=== PATIENT | female | born 1975 | race Caucasian/White ===

== ENCOUNTER 2016-10-12 10:06 | Outpatient (CLI) | payer MEDICAID | END 2016-10-12 10:07 | disposition home or self-care (01) ==

== ENCOUNTER 2016-10-14 09:21 | Day surgery (SDC) | payer MEDICAID ==
[2016-10-14] MEDS ORDERED: ceFAZolin 2 GM/50 ML 50 ML IV ONE (09:31)
[2016-10-14] MEDS ORDERED: LACTATED RINGERS 1,000 ML IV ONE ×3 (09:53→14:20)
[2016-10-14] MEDS ORDERED: LIDOCAINE-MPF 2% 5 ML VIAL IM ONE (10:49)
[2016-10-14] MEDS ORDERED: ROCURONIUM 50 MG/5 ML VIAL IVP ONE (10:49)
[2016-10-14] MEDS ORDERED: SUCCINYLCHOLINE 200 MG/10 ML VIAL IVP ONE (10:49)
[2016-10-14] MEDS ORDERED: HYDROmorphone 1 MG/ML SYRINGE IVP ONE (10:49)
[2016-10-14] MEDS ORDERED: ESMOLOL 100 MG/10 ML VIAL IVP ONE (10:49)
[2016-10-14] MEDS ORDERED: PROPOFOL 200 MG/20 ML VIAL IVP ONE (10:49)
[2016-10-14] MEDS ORDERED: ONDANSETRON 4 MG/2 ML VIAL IVP ONE (10:49)
[2016-10-14] MEDS ORDERED: MIDAZOLAM 2 MG/2 ML VIAL IVP ONE (10:49)
[2016-10-14] MEDS ORDERED: KETOROLAC 30 MG/ML VIAL IVP ONE (10:49)
[2016-10-14] MEDS ORDERED: PHENYLEPHRINE 50 MG/5 ML VIAL IV ONE (10:49)
[2016-10-14] MEDS ORDERED: DEXAMETHASONE 4 MG/ML VIAL IVP ONE (10:49)
[2016-10-14] MEDS ORDERED: LIDOCAINE 1%-EPI 1:100000 30 ML MDV SUBQ ONE (11:03)
[2016-10-14] MEDS ORDERED: BUPIVACAINE 0.25%-EPI 1:200000 PF 30 ML VIAL SUBQ ONE (11:31)
[2016-10-14] MEDS ORDERED: oxyCOD/ACETAMIN 5 MG/325 MG TABLET PO ONE (14:50)
== END 2016-10-14 09:22 | disposition home or self-care (01) ==
PROC: 0UB74ZZ Excision of Bilateral Fallopian Tubes, Percutaneous Endoscopic Approach (ICD-10-PCS; principal; 2016-10-14 11:00)
DX: Z30.2 Encounter for sterilization (principal)
CPT/HCPCS: 58661; 81025; A9270; J0690; J1170; J7120

== ENCOUNTER 2016-10-21 08:00 | Outpatient (CLI) | payer MEDICAID | END 2016-10-21 23:59 | disposition home or self-care (01) | DX: K92.1 Melena (principal) ==

== ENCOUNTER 2017-02-09 09:33 | Outpatient (CLI) | payer OTHER ==
--- NOTE | 2017-02-09 14:24 | DEXA Report ---
DEXA SCAN: 02/09/2017 CLINICAL INDICATION: Postmenopausal. TECHNIQUE: Dual energy x-ray absorptiometry (DXA) was performed on a [employer] system. Regions measured are the AP spine, femoral neck, and, if needed, forearm. COMPARISON: None. In accordance with the International Society for Clinical Densitometry (ISCD) guidelines, data from previous exams may be reanalyzed using current recommendations and techniques. This is done to allow a more accurate basis for comparison with the current study. FINDINGS: The data for the lumbar spine is as follows: REGION BMD (g/cm/cm) T-SCORE Z-SCORE L1 0.914 -1.8 -1.1 L2 1.021 -1.5 -0.8 L3 1.062 -1.2 -0.5 L4 1.014 -1.5 -0.9 TOTAL 1.008 -1.4 -0.8 NOTE: All evaluable vertebrae are used for classification. The data for the hip is as follows: REGION BMD (g/cm/cm) T-SCORE Z-SCORE Neck 0.822 -1.6 -0.6 TOTAL 0.762 -1.9 -1.2 NOTE: The femoral neck or total proximal femur, whichever is lowest, is used for classification. * Denotes significant change at the 95% confidence level. Denotes dissimilar scan types or analysis methods. IMPRESSION: THE WHO CLASSIFICATION BASED ON THE INTERNATIONAL REFERENCE STANDARD IS OSTEOPENIA. THE FRACTURE RISK IS INCREASED. RECOMMENDATION: Patients with diagnosis of osteoporosis or osteopenia should have regular bone mineral density assessment. For those eligible for Medicare, routine testing is allowed once every 2 years. Testing frequency can be increased for patients who have rapidly progressing disease or for those who are receiving medical therapy to restore bone mass. COMMENT: World Health Organization (WHO) definitions for osteoporosis and osteopenia: NORMAL BMD: T-score at -1.0 or higher, fracture risk is low. OSTEOPENIA BMD: T-score between -1.0 and -2.5, fracture risk is increased. OSTEOPOROSIS BMD: T-score at -2.5 or lower, fracture risk high. National Osteoporosis Foundation recommends: 1. Obtain adequate dietary calcium (at least 1200 mg per day) and vitamin D (400 -800 international units per day). 2. Participate, as appropriate, in regular weightbearing and muscle- strengthening exercise. 3. Avoid tobacco use and reduce alcohol and caffeine intake. 4. For more detailed information see the website at www.NOF.org. MTDD
== END 2017-02-09 09:34 | disposition home or self-care (01) ==
LOC: DI 09:33
PROVIDERS: ATTEND Obstetrics & Gynecology
DX: Z13.820 Encounter for screening for osteoporosis (principal); M85.89 Other specified disorders of bone density and structure, multiple sites
CPT/HCPCS: 77080

== ENCOUNTER 2017-08-03 08:12 | Outpatient (CLI) | payer OTHER ==
--- NOTE | 2017-08-04 17:31 | Mammography Report ---
DIGITAL SCREENING MAMMOGRAM: 08/03/2017 CLINICAL INDICATION: A 42-year-old with history of late childbearing for screening. COMPARISON: 11/2014 TECHNIQUE: Routine CC and MLO as well as bilateral laterally exaggerated craniocaudal views projecti ons were obtained of the breasts. FINDINGS: Parenchymal tissue within both breasts is heterogeneously dense, which may lower the sensi tivity of mammography; however, there are no dominant masses, suspicious microcalcifications, or seco ndary signs of malignancy. In comparison to the previous studies, there are no significant changes. ASSESSMENT: NO MAMMOGRAPHIC EVIDENCE OF MALIGNANCY. NO SIGNIFICANT INTERVAL CHANGES. RECOMMENDATION: Screening mammography is recommended annually. BIRADS category 1 - negative. STANDARD QUALIFYING STATEMENTS 1. This examination was reviewed with the aid of Computed-Aided Detection (CAD). 2. A negative or benign imaging report should not delay biopsy if clinically suspicious findings are present. Consider surgical consultation if warranted. More than 5% of cancers are not identified b y imaging. 3. Dense breasts may obscure an underlying neoplasm. JOB #: [id number] EXT JOB #:[id number]
== END 2017-08-03 08:13 | disposition home or self-care (01) ==
LOC: DI.N 08:12
PROVIDERS: ATTEND Nurse Practitioner Gerontology
DX: Z12.39 Encounter for other screening for malignant neoplasm of breast (principal)
CPT/HCPCS: 77067

== ENCOUNTER 2018-10-08 02:32 | Emergency (ER) | payer OTHER, MEDICAID ==
[2018-10-08 02:43] VITALS: BP 136/89
--- NOTE | 2018-10-08 03:11 | XRAY Report ---
Reason: L wrist caught in metal door Procedure Date: 10/08/2018 Accession Number: [id number] / [id number] Procedure: XR - Wrist 4 View LT CPT Code: FULL RESULT: EXAM: LEFT WRIST RADIOGRAPHY EXAM DATE: 10/08/2018 02:47 AM. CLINICAL HISTORY: L wrist caught in metal door. COMPARISON: None. TECHNIQUE: 4 views. FINDINGS: Bones: Normal. No fractures or bone lesions. Joints: Normal. No subluxations. Soft Tissues: Normal. No soft tissue swelling. IMPRESSION: Normal wrist radiography. RADIA
--- NOTE | 2018-10-08 03:16 | ED Physician Documentation ---
PD HPI UPPER EXT INJURY - Stated complaint Stated Complaint: LT ARM INJURY - Chief complaint Chief Complaint: Trauma Ext - History obtained from History obtained from: Patient - History of Present Illness Location: Left, Wrist Type of injury: Crush (metal door) Where injury occurred: Work Timing - onset: How many hours ago (20) Timing - duration: Hours (20) Timing - details: Gradual onset Pain level max: 6 Pain level now: 5 Improved by: Rest, Ice, Immobilization Worsened by: Moving, Palpating Associated symptoms: Swelling. No: Weakness, Numbness, Tingling, Discolored Contributing factors: No: Anticoagulated, Prior ortho surgery, Prosthetic joint Similar symptoms before: Has not had sx before Recently seen: Not recently seen - Additonal information Additional information: L handed Review of Systems Constitutional: denies: Fever, Chills : denies: Now EGA Neurologic: denies: Focal weakness, Numbness, Headache PD PAST MEDICAL HISTORY - Past Medical History Past Medical History: Yes Cardiovascular: None Respiratory: None Endocrine/Autoimmune: None GI: None : Kidney stones HEENT: None Psych: Depression Musculoskeletal: None Derm: None - Past Surgical History Past Surgical History: Yes HEENT: Myringotomy (tubes) - Present Medications Home Medications: Ambulatory Orders Medication Instructions Recorded Confirmed Citalopram [CeleXA] 10 mg PO DAILY 10/13/16 10/08/18 Ibuprofen 1 tab PO Q6HR PRN 10/08/18 10/08/18 - Allergies Allergies/Adverse Reactions: Allergies Allergy/AdvReac Type Severity Reaction Status Date / Time peanut Allergy Hives Verified 10/08/18 02:40 cough med Allergy Nausea Uncoded 10/08/18 02:40 - Social History Does the pt smoke?: No Smoking Status: Never smoker Does the pt drink ETOH?: Yes Does the pt have substance abuse?: No - Immunizations Immunizations are current?: Yes - POLST Patient has POLST: No PD ED PE NORMAL - Vitals Vital signs reviewed: Yes - General General: Alert and oriented X 3, No acute distress - Derm Derm: Warm and dry - Extremities Extremities: Other (L wrist - Mild swelling and bruising to the distal radius on the left wrist. No snuffbox tenderness. Mild tenderness along the distal radius. Otherwise normal examination of the hand and wrist. Does have good range of motion at the wrist and all fingers. Also normal examination of the elbow and shoulder. Neurovascularly intact) - Neuro Neuro: Alert and oriented X 3 Results - Vitals Vitals: Vital Signs - 24 hr 10/08/18 02:35 Temperature 36.9 C Heart Rate 82 Respiratory 14 Rate Blood Pressure 136/89 H O2 Saturation 99 Oxygen O2 Source Room air - Rads (name of study) Left wrist x-ray Radiology: Prelim report reviewed, EMP read contemporaneously, See rad report (Normal) PD MEDICAL DECISION MAKING - ED course Complexity details: reviewed results, re-evaluated patient, considered differential, d/w patient ED course: 43-year-old female with a left wrist contusion. Negative x-ray. Placed in a V elcro splint for comfort. L&I paperwork filled out. Patient counseled regarding signs and symptoms for which I believe and urgent re-evaluation would be necessary. Patient with good understanding of and agreement to plan and is comfortable going home at this time This document was made in part using voice recognition software. While efforts are made to proofread this document, sound alike and grammatical errors may occur. Departure - Departure Disposition: 01 Home, Self Care Clinical Impression: Contusion of left wrist, initial encounter Condition: Good Instructions: ED Contusion Upper Ext Follow-Up: Makeda Wright ARNP [Primary Care Provider] - Within 1 week (if not better) Comments: Return if you worsen. Follow-up with your doctor in 1 week if you are still having pain. Wear the brace as needed for comfort. Discharge Date/Time: 10/08/18 03:25
== END 2018-10-08 03:25 | disposition home or self-care (01) ==
LOC: ED 02:32
DX: S60.212A Contusion of left wrist, initial encounter (principal); W23.0XXA Caught, crushed, jammed, or pinched between moving objects, initial encounter; Y92.511 Restaurant or cafe as the place of occurrence of the external cause; Y99.0 Civilian activity done for income or pay
CPT/HCPCS: 99282; 99283

== ENCOUNTER 2019-06-08 10:41 | Outpatient (CLI) | payer MEDICAID, OTHER ==
[2019-06-08 18:53] LABS: BASOPHILS # (AUTO) 0.1 10^3/uL (0.0-0.1); BASOPHILS % (AUTO) 0.8 %; EOSINOPHILS # (AUTO) 0.2 10^3/uL (0.0-0.7); EOSINOPHILS % (AUTO) 2.3 %; HGB - HEMOGLOBIN 13.2 g/dL (12.0-16.0); LYMPHOCYTES # (AUTO) 2.4 10^3/uL (1.5-3.5); LYMPHOCYTES % (AUTO) 26.4 %; MEAN CORPUSCULAR HEMOGLOBIN 31.7 pg (27.0-31.0); MEAN CORPUSCULAR HGB CONC 31.6 g/dL (32.0-36.0); MEAN CORPUSCULAR VOLUME 100.2 fL (81.0-99.0); MEAN PLATELET VOLUME 10.3 fL (7.9-10.8); MONOCYTES # (AUTO) 0.7 10^3/uL (0.0-1.0); MONOCYTES % (AUTO) 7.4 %; NEUTROPHILS # (AUTO) 5.7 10^3/uL (1.5-6.6); NEUTROPHILS % (AUTO) 62.7 %; PLT - PLATELET COUNT 318 10^3/uL (130-450); RED BLOOD COUNT 4.17 10^6/uL (4.20-5.40); RED CELL DISTRIBUTION WIDTH 12.8 % (12.0-15.0); WHITE BLOOD COUNT 9.1 x10^3/uL (4.8-10.8)
[2019-06-08 19:25] LABS: ALBUMIN 4.4 g/dL (3.2-5.5); ALBUMIN/GLOBULIN RATIO 1.8 (1.0-2.2); ALKALINE PHOSPHATASE 49 IU/L (42-121); ALT ALANINE AMINOTRANSFERASE 13 IU/L (10-60); AST ASPARTATE AMINOTRANSFERASE 17 IU/L (10-42); BILIRUBIN,TOTAL 0.7 mg/dL (0.2-1.0); BUN - BLOOD UREA NITROGEN 16 mg/dL (6-20); CALCIUM 8.7 mg/dL (8.5-10.3); CARBON DIOXIDE - CO2 30 mmol/L (21-32); CHLORIDE 102 mmol/L (101-111); CHOL/HDL RATIO 2.7 (<4.4); CHOLESTEROL 229 mg/dL; CREATININE 0.6 mg/dL (0.4-1.0); GFR - MDRD 108 (>89); GLUCOSE 87 mg/dL (70-100); HDL CHOLESTEROL 85 mg/dL; LDL CHOLESTEROL,CALCULATED 134 mg/dL; LDL/HDL RATIO 1.6 (<4.4); SODIUM 138 mmol/L (135-145); TOTAL PROTEIN 6.9 g/dL (6.7-8.2); VLDL CHOLESTEROL 10 mg/dL
== END 2019-06-08 10:50 | disposition home or self-care (01) ==
LOC: LAB.N 10:41
PROVIDERS: ATTEND Nurse Practitioner Gerontology
DX: Z13.9 Encounter for screening, unspecified (principal)
CPT/HCPCS: 36415; 80053; 80061; 83721; 84443; 85025

== ENCOUNTER 2020-02-14 21:31 | Emergency (ER) | payer MEDICAID ==
--- NOTE | 2020-02-14 22:02 | ED Physician Documentation ---
PD HPI FOCAL NEURO - Stated complaint Stated Complaint: NUMB JAW - Chief complaint Chief Complaint: Neuro - History obtained from History obtained from: Patient - History of Present Illness Timing - onset: How many hours ago (30) Timing - duration: Minutes (20-25 minutes, is improving coming to ER and resolved by here.) Timing - details: Gradual onset (she was driving home from work and noted onset of feeling numbness/tingling on both sides of her jaw. No chest pain nor dyspnea. No headache. Has feeling of pressure in ears for few days from allergi es, and had feeling like fluid from right ear earlier in the day. She says she does grind teeth at night, and when asked, said she was feeling tense when driving home.) Severity of deficit: Moderate Weakness: No: Face, Arm, Leg Numbness: Face (just mandible area), Right, Left. No: Arm, Hand, Leg, Foot Associated symptoms: No: Headache, Nausea / vomiting, Neck pain Contributing factors: negative: Anticoagulated, Vascular dz, Atrial fibrillation Baseline status: positive: A&OX3, ambulatory, indep Similar symptoms before: Has not had sx before Recently seen: Not recently seen Review of Systems Constitutional: denies: Fever, Chills Ears: reports: Ear pain (pressure feeling for days). denies: Drainage/discharge, Tinnitus/ringing Nose: reports: Rhinorrhea / runny nose, Sinus pressure / pain Throat: denies: Dental pain / toothache, Oral lesions / sores, Sore throat Cardiac: denies: Chest pain / pressure GI: denies: Nausea, Vomiting, Diarrhea Skin: denies: Rash, Lesions PD PAST MEDICAL HISTORY - Past Medical History Past Medical History: Yes Cardiovascular: None Respiratory: None Neuro: Other Endocrine/Autoimmune: None GI: None : Kidney stones HEENT: None Psych: Depression Musculoskeletal: None Derm: None Other Past Medical History: Pt states childhood epilepsy. Has not had seizures since 14 - Past Surgical History Past Surgical History: Yes HEENT: Myringotomy (tubes) - Present Medications Home Medications: Ambulatory Orders Medication Instructions Recorded Confirmed Citalopram [CeleXA] 10 mg PO DAILY 10/13/16 10/08/18 Ibuprofen 1 tab PO Q6HR PRN 10/08/18 10/08/18 dexAMETHasone [Decadron] 4 mg PO DAILY #5 tablet 02/14/20 - Allergies Allergies/Adverse Reactions: Allergies Allergy/AdvReac Type Severity Reaction Status Date / Time peanut Allergy Hives Verified 02/14/20 21:37 cough med Allergy Nausea Uncoded 02/14/20 21:37 - Social History Does the pt smoke?: No Smoking Status: Never smoker Does the pt drink ETOH?: Yes Does the pt have substance abuse?: No - Immunizations Immunizations are current?: Yes - POLST Patient has POLST: No PD ED PE NORMAL - Vitals Vital signs reviewed: Yes - General General: Alert and oriented X 3, No acute distress, Well developed/nourished - HEENT HEENT: PERRL, EOMI, Ears normal, Moist mucous membranes, Pharynx benign, Dentition benign, Other (mild tenderness at TMJ without clicking. ) - Neck Neck: Supple, no meningeal sign, No adenopathy - Cardiac Cardiac: RRR, No murmur - Respiratory Respiratory: Clear bilaterally - Derm Derm: Normal color, Warm and dry, No rash - Neuro Neuro: Alert and oriented X 3, cloth printing back tender 2-12 intact, No motor deficit, No sensory deficit, Normal speech Results - Vitals Vitals: Vital Signs - 24 hr 02/14/20 02/14/20 21:34 23:14 Temperature 36.6 C Heart Rate 95 80 Respiratory 16 14 Rate Blood Pressure 143/82 H 135/80 H O2 Saturation 100 100 Oxygen O2 Source Room air PD MEDICAL DECISION MAKING - ED course Complexity details: considered differential (has had some allergy symptoms of ear fullness/pressure, runny nose, and sinus congestion. Had brief numbness both sides mandible area. May be due to some ear congestion of trigeminal nerves, or she says she does grind teeth at night and felt tense driving, so could be TMJ process. Does not sound unilateral and not whole face nor any extremity symptoms, so does not sound central. ), d/w patient Departure - Departure Disposition: 01 Home, Self Care Clinical Impression: Facial numbness, Environmental allergies Condition: Stable Record reviewed to determine appropriate education?: Yes Prescriptions: dexAMETHasone [Decadron] 4 mg PO DAILY #5 tablet Comments: I think your symptoms were from some middle and inner ear congestion from allergies and subsequent pressure on the nerve to the lower face. However might be contributed by your teeth grinding and clenching as well. Continue your loratadine allergy medicine. Add Benadryl at night for the next several nights. Also Decadron steroid for inflammation/allergies for 5 more days. If you continue with some discomfort through the ears and intermittent numbness in the face, you may consider also a mouthguard/bite block (can be gotten online or at a sports store) that you wear at night to reduce the amount of clenching and grinding and therefore less pressure at the TMJ and irritation of the nerve to the face. Discharge Date/Time: 02/14/20 23:15
[2020-02-14] MEDS ORDERED: DEXAMETHASONE 10 MG/ML VIAL PO STA (22:28)
[2020-02-14] MEDS ORDERED: diphenhydrAMINE 25 MG CAPSULE PO STA (22:28)
[2020-02-14] MEDS ORDERED: CHERRY SYRUP 10 ML UDC PO ONE (22:28)
[2020-02-14 23:15] VITALS: BP 135/80
== END 2020-02-14 23:15 | disposition home or self-care (01) ==
LOC: ED 21:31
DX: R20.0 Anesthesia of skin (principal); J30.1 Allergic rhinitis due to pollen
CPT/HCPCS: 99282; 99284; A9270

== ENCOUNTER 2020-08-05 07:05 | Outpatient (CLI) | payer MEDICAID ==
[2020-08-05 07:14] LABS: BASOPHILS # (AUTO) 0.1 10^3/uL (0.0-0.1); BASOPHILS % (AUTO) 0.8 %; EOSINOPHILS # (AUTO) 0.4 10^3/uL (0.0-0.7); EOSINOPHILS % (AUTO) 3.7 %; HGB - HEMOGLOBIN 14.1 g/dL (12.0-16.0); LYMPHOCYTES # (AUTO) 2.9 10^3/uL (1.5-3.5); LYMPHOCYTES % (AUTO) 30.1 %; MEAN CORPUSCULAR HEMOGLOBIN 32.4 pg (27.0-31.0); MEAN CORPUSCULAR HGB CONC 32.7 g/dL (32.0-36.0); MEAN CORPUSCULAR VOLUME 99.1 fL (81.0-99.0); MEAN PLATELET VOLUME 9.3 fL (7.9-10.8); MONOCYTES # (AUTO) 0.8 10^3/uL (0.0-1.0); MONOCYTES % (AUTO) 7.8 %; NEUTROPHILS # (AUTO) 5.6 10^3/uL (1.5-6.6); NEUTROPHILS % (AUTO) 57.2 %; PLT - PLATELET COUNT 334 10^3/uL (130-450); RED BLOOD COUNT 4.35 10^6/uL (4.20-5.40); RED CELL DISTRIBUTION WIDTH 12.8 % (12.0-15.0); WHITE BLOOD COUNT 9.7 x10^3/uL (4.8-10.8)
[2020-08-05 07:39] LABS: ALBUMIN 4.3 g/dL (3.2-5.5); ALBUMIN/GLOBULIN RATIO 1.4 (1.0-2.2); ALKALINE PHOSPHATASE 60 IU/L (42-121); ALT ALANINE AMINOTRANSFERASE 14 IU/L (10-60); AST ASPARTATE AMINOTRANSFERASE 16 IU/L (10-42); BILIRUBIN,TOTAL 0.9 mg/dL (0.2-1.0); BUN - BLOOD UREA NITROGEN 15 mg/dL (6-20); CARBON DIOXIDE - CO2 25 mmol/L (21-32); CHLORIDE 102 mmol/L (101-111); CHOLESTEROL 243 mg/dL; CREATININE 0.7 mg/dL (0.4-1.0); GLUCOSE 104 mg/dL (70-100); HDL CHOLESTEROL 80 mg/dL; SODIUM 136 mmol/L (135-145); TOTAL PROTEIN 7.3 g/dL (6.7-8.2); VLDL CHOLESTEROL 16 mg/dL
[2020-08-05 07:40] LABS: LDL CHOLESTEROL,CALCULATED 147 mg/dL; LDL/HDL RATIO 1.8 (<4.4)
== END 2020-08-05 07:06 | disposition home or self-care (01) ==
LOC: LAB 07:05
PROVIDERS: ATTEND Physician Assistant
DX: Z13.9 Encounter for screening, unspecified (principal); F32.9 Major depressive disorder, single episode, unspecified; Z86.69 Personal history of other diseases of the nervous system and sense organs
CPT/HCPCS: 36415; 80050; 80061; 83721

== ENCOUNTER 2021-05-30 16:56 | Emergency (ER) | payer MEDICAID ==
[2021-05-30 17:05] VITALS: BP 142/70
--- NOTE | 2021-05-30 18:02 | ED Physician Documentation ---
History of Present Illness - Stated complaint Stated Complaint: RT LEG BRUISING - Chief complaint Chief Complaint: Ext Problem - History obtained from History obtained from: Patient - Additonal information Additional information: 46-year-old female who presents with a small bruise on the back of the right leg. She was unaware that it was there but her noticed it and she became concerned is possibly related to a blood clot. Bruise is not painful, there is no leg swelling, no redness, she has no history of blood clots, no recent immobility, no history of cancer or other risk factors for blood clot. 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 She does have a history of varicose veins though none of them are bothering her at this time. Review of Systems Ten Systems: 10 systems reviewed and negative Constitutional: reports: Reviewed and negative Eyes: reports: Reviewed and negative Ears: reports: Reviewed and negative Nose: reports: Reviewed and negative Throat: reports: Reviewed and negative Cardiac: reports: Reviewed and negative Respiratory: reports: Reviewed and negative GI: reports: Reviewed and negative : reports: Reviewed and negative Musculoskeletal: reports: Reviewed and negative PD PAST MEDICAL HISTORY - Past Medical History Cardiovascular: None Respiratory: None Neuro: Other Endocrine/Autoimmune: None GI: None : Kidney stones HEENT: None Psych: Depression Musculoskeletal: None Derm: None - Past Surgical History Past Surgical History: Yes HEENT: Myringotomy (tubes) - Present Medications Home Medications: Ambulatory Orders Medication Instructions Recorded Confirmed Citalopram [CeleXA] 10 mg PO DAILY 10/13/16 10/08/18 Ibuprofen 1 tab PO Q6HR PRN 10/08/18 10/08/18 dexAMETHasone [Decadron] 4 mg PO DAILY #5 tablet 02/14/20 - Allergies Allergies/Adverse Reactions: Allergies Allergy/AdvReac Type Severity Reaction Status Date / Time peanut Allergy Hives Verified 05/30/21 17:05 cough med Allergy Nausea Uncoded 05/30/21 17:05 - Social History Does the pt smoke?: No Smoking Status: Never smoker Does the pt drink ETOH?: Yes Does the pt have substance abuse?: No - Immunizations Immunizations are current?: Yes - POLST Patient has POLST: No PD ED PE NORMAL - Vitals Vital signs reviewed: Yes - General General: Alert and oriented X 3, No acute distress, Well developed/nourished - HEENT HEENT: Atraumatic, Moist mucous membranes - Cardiac Cardiac: RRR, No murmur - Respiratory Respiratory: No respiratory distress, Clear bilaterally - Derm Derm: Normal color, Warm and dry, No rash, Other (There is a older appearing bruise approximately quarter sized on the back of the right leg behind the right knee. It is nontender, there is no surrounding hematoma, no erythema.) - Extremities Extremities: No deformity, No tenderness to palpate, Normal ROM s pain, No edema, No calf tenderness / cord - Neuro Neuro: Alert and oriented X 3, No motor deficit, No sensory deficit, Normal speech Eye Opening: Spontaneous Motor: Obeys Commands Verbal: Oriented GCS Score: 15 - Psych Psych: Normal mood, Normal affect Results - Vitals Vitals: Vital Signs - 24 hr 05/30/21 17:03 Temperature 36.0 C L Heart Rate 80 Respiratory 16 Rate Blood Pressure 142/70 H O2 Saturation 96 Oxygen O2 Source Room air PD MEDICAL DECISION MAKING - ED course Complexity details: d/w patient ED course: Is a 46-year-old female who has a bruise on the back of her right leg. Patient was concerned about possible blood clot however patient does not have any other symptoms of blood clot, no unilateral leg swelling, no erythema, no swelling, the area is nontender. Suspect this is a contusion. I provided reassurance the patient I educated her on signs and symptoms of blood clots. Departure - Departure Disposition: 01 Home, Self Care Clinical Impression: Bruise Condition: Good Comments: You have a small bruise on the back of your leg. It is soft and not a hematoma. It is not related to a blood clot and there are no signs Blood clot such as redness, unilateral leg swelling, pain. It is likely that you had a small burst vessel, or possible contusion, in any case it will resolve on its own in the next 1 to 2 weeks.
== END 2021-05-30 18:14 | disposition home or self-care (01) ==
LOC: ED 16:56
DX: S80.11XA Contusion of right lower leg, initial encounter (principal); X58.XXXA Exposure to other specified factors, initial encounter
CPT/HCPCS: 99281; 99282

== ENCOUNTER 2021-10-22 09:05 | Outpatient (CLI) | payer MEDICAID ==
[2021-10-22 12:29] LABS: BASOPHILS # (AUTO) 0.1 10^3/uL (0.0-0.1); BASOPHILS % (AUTO) 0.7 %; EOSINOPHILS # (AUTO) 0.3 10^3/uL (0.0-0.7); EOSINOPHILS % (AUTO) 2.9 %; HCT - HEMATOCRIT 41.4 % (37.0-47.0); HGB - HEMOGLOBIN 13.5 g/dL (12.0-16.0); LYMPHOCYTES # (AUTO) 2.9 10^3/uL (1.5-3.5); LYMPHOCYTES % (AUTO) 33.3 %; MEAN CORPUSCULAR HGB CONC 32.6 g/dL (32.0-36.0); MEAN CORPUSCULAR VOLUME 98.1 fL (81.0-99.0); MEAN PLATELET VOLUME 10.5 fL (7.9-10.8); MONOCYTES # (AUTO) 0.7 10^3/uL (0.0-1.0); MONOCYTES % (AUTO) 7.5 %; NEUTROPHILS # (AUTO) 4.8 10^3/uL (1.5-6.6); NEUTROPHILS % (AUTO) 55.3 %; PLT - PLATELET COUNT 336 10^3/uL (130-450); RED BLOOD COUNT 4.22 10^6/uL (4.20-5.40); WHITE BLOOD COUNT 8.8 x10^3/uL (4.8-10.8)
[2021-10-22 13:03] LABS: THYROID STIMULATING HORMONE 0.98 uIU/mL (0.34-5.60)
[2021-10-22 13:23] LABS: ALBUMIN 4.1 g/dL (3.2-5.5); ALBUMIN/GLOBULIN RATIO 1.4 (1.0-2.2); ALKALINE PHOSPHATASE 61 IU/L (42-121); ALT ALANINE AMINOTRANSFERASE 12 IU/L (10-60); AST ASPARTATE AMINOTRANSFERASE 15 IU/L (10-42); BILIRUBIN,TOTAL 0.8 mg/dL (0.2-1.0); BUN - BLOOD UREA NITROGEN 16 mg/dL (6-20); CALCIUM 8.8 mg/dL (8.5-10.3); CARBON DIOXIDE - CO2 27 mmol/L (21-32); CHLORIDE 101 mmol/L (101-111); CHOL/HDL RATIO 2.7 (<4.4); CHOLESTEROL 233 mg/dL; CREATININE 0.6 mg/dL (0.4-1.0); GFR - MDRD 107 (>89); GLUCOSE 89 mg/dL (70-100); HDL CHOLESTEROL 85 mg/dL; LDL CHOLESTEROL,CALCULATED 137 mg/dL; LDL/HDL RATIO 1.6 (<4.4); POTASSIUM 4.3 mmol/L (3.5-5.0); SODIUM 136 mmol/L (135-145); TOTAL PROTEIN 7.1 g/dL (6.7-8.2); TRIGLYCERIDES 55 mg/dL; VLDL CHOLESTEROL 11 mg/dL
== END 2021-10-22 09:06 | disposition home or self-care (01) ==
LOC: LAB.N 09:05
PROVIDERS: ATTEND Nurse Practitioner Family
DX: Z00.00 Encounter for general adult medical examination without abnormal findings (principal); Z13.220 Encounter for screening for lipoid disorders; F41.8 Other specified anxiety disorders
CPT/HCPCS: 36415; 80050; 80061; 83721

== ENCOUNTER 2021-12-03 07:50 | Outpatient (CLI) | payer MEDICAID ==
--- NOTE | 2021-12-04 08:35 | Mammography Report ---
BILATERAL DIGITAL SCREENING MAMMOGRAM 3D/2D: 12/03/2021 CLINICAL: Routine screening. Comparison is made to exams dated: 08/03/2017 mammogram, 11/26/2014 mammogram, and 11/12/2014 mammogram - [facility]. The tissue of both breasts is heterogeneously dense. This may lower the sensitivity of mammography. There is an asymmetry in the right breast posterior depth superior region seen on the mediolateral ob lique view only. This is more prominent. There is a focal asymmetry in the left breast at 1 o'clock posterior depth. This is more prominent. No other significant masses or calcifications are seen in either breast. IMPRESSION: INCOMPLETE: NEEDS ADDITIONAL IMAGING EVALUATION The asymmetry in the right breast posterior depth superior region seen on the mediolateral oblique vi ew only is indeterminate. -Additional views with possible ultrasound are recommended. The focal asymmetry in the left breast at 1 o'clock posterior depth resembles a cyst and is indetermi trixie. -Additional views with possible ultrasound are recommended. This exam was interpreted at Station ID: [id number]. NOTE: For mammograms, a report in lay terms will be sent to the patient. Approximately 15% of breast malignancies will not be visualized mammographically. In the management of a palpable breast mass, a negative mammogram must not discourage biopsy of a clinically suspicious lesion. Electronically Signed By: Musa Arellano M.D. slc/:12/03/2021 17:00:26 ACR BI-RADS Category 0: Incomplete 3340F PARENCHYMAL PATTERN: (D) - The breast(s) demonstrate(s) heterogeneously dense fibroglandular chencho richardson. BI-RADS CATEGORY: (0) - 0 Mammo and US [id number] Immediate follow-up LATERALITY: (B)
== END 2021-12-03 07:51 | disposition home or self-care (01) ==
LOC: DI.N 07:50
PROVIDERS: ATTEND Nurse Practitioner Family
DX: Z12.31 Encounter for screening mammogram for malignant neoplasm of breast (principal); R92.8 Other abnormal and inconclusive findings on diagnostic imaging of breast

== ENCOUNTER 2022-03-16 12:19 | Outpatient (CLI) | payer MEDICAID ==
--- NOTE | 2022-03-17 08:20 | Ultrasound Report ---
LIMITED ULTRASOUND OF RIGHT BREAST: 03/16/2022 CLINICAL: Patient returns today to evaluate an asymmetry in the right breast. Comparison is made to exams dated: 03/16/2022 mammogram, 12/03/2021 mammogram, and 08/03/2017 mammogra [facility]. Color flow ultrasound of the right breast 12 o'clock region was performed. Brooks scale images of the real-time examination were reviewed. There is a benign 0.6 cm x 0.6 cm x 0.4 cm oval cyst with a smooth internal wall in the right breast at 12 o'clock posterior depth 5 cm from the nipple. This oval cyst is anechoic with posterior acoust ic enhancement. This correlates with mammography findings. Color flow imaging demonstrates that the re is no vascularity present. Adjacent to this cyst, there is an additional cyst. IMPRESSION: BENIGN There is no sonographic evidence of malignancy. The 0.6 cm x 0.6 cm x 0.4 cm oval cyst in the right breast is benign. Return to annual mammogram screening schedule is recommended. This exam was interpreted at Station ID: [id number]. Electronically Signed By: Jack becerril/marianna:03/16/2022 14:35:24 Ultrasound BI-RADS: 2 Benign BI-RADS CATEGORY: (2) - 2 Mammogram [id number] return to screening LATERALITY: (B)
--- NOTE | 2022-03-17 08:20 | Mammography Report ---
BILATERAL DIGITAL DIAGNOSTIC MAMMOGRAM 3D/2D: 03/16/2022 CLINICAL: Patient returns today to evaluate an asymmetry in the right breast. Patient returns today t o evaluate a focal asymmetry in the left breast. Comparison is made to exams dated: 12/03/2021 mammogram and 08/03/2017 mammogram - [facility]. The tissue of both breasts is heterogeneously dense. This may lower the sensitivity of m ammography. There is an irregular focal asymmetry with an obscured margin in the right breast at 12 o'clock poste rior depth. This is seen in additional views. There is an oval equal density focal asymmetry with a circumscribed margin in the left breast at 3 o' clock posterior depth. This is seen in additional views. This is more prominent. No other significant masses or calcifications are seen in either breast. IMPRESSION: INCOMPLETE: NEEDS ADDITIONAL IMAGING EVALUATION The irregular focal asymmetry in the right breast at 12 o'clock posterior depth is indeterminate. An ultrasound is recommended. The oval equal density focal asymmetry in the left breast at 3 o'clock posterior depth is indetermina te. An ultrasound is recommended. This exam was interpreted at Station ID: [id number]. NOTE: For mammograms, a report in lay terms will be sent to the patient. Approximately 15% of breast malignancies will not be visualized mammographically. In the management of a palpable breast mass, a negative mammogram must not discourage biopsy of a clinically suspicious lesion. Electronically Signed By: Jack becerril/marianna:03/16/2022 14:30:01 ACR BI-RADS Category 0: Incomplete 3340F PARENCHYMAL PATTERN: (D) - The breast(s) demonstrate(s) heterogeneously dense fibroglandular paruriel rcihardson. BI-RADS CATEGORY: (0) - 0 Ultrasound [id number] Immediate follow-up LATERALITY: (B)
--- NOTE | 2022-03-17 08:20 | Ultrasound Report ---
LIMITED ULTRASOUND OF LEFT BREAST: 03/16/2022 CLINICAL: Patient returns today to evaluate a focal asymmetry in the left breast. Comparison is made to exams dated: 03/16/2022 mammogram, 12/03/2021 mammogram, and 08/03/2017 mammogra - [facility]. Color flow ultrasound of the left breast 3 o'clock region was performed. Brooks scale images of the r eal-time examination were reviewed. There is a benign 1.1 cm x 0.9 cm x 0.6 cm oval cyst in the left breast at 3 o'clock posterior depth. This oval cyst is anechoic. This correlates with mammography findings. Adjacent to this cyst, th ere is an additional simple cyst. IMPRESSION: BENIGN There is no sonographic evidence of malignancy. The 1.1 cm x 0.9 cm x 0.6 cm oval cyst in the left breast is consistent with a simple cyst and is alexis ign. Return to annual mammogram screening schedule is recommended. This exam was interpreted at Station ID: [id number]. Electronically Signed By: Jack becerril/marianna:03/16/2022 14:33:42 Ultrasound BI-RADS: 2 Benign BI-RADS CATEGORY: (2) - 2 Mammogram [id number] return to screening LATERALITY: (B)
== END 2022-03-16 12:20 | disposition home or self-care (01) ==
LOC: DI 12:19
PROVIDERS: ATTEND Physician Assistant
DX: N60.01 Solitary cyst of right breast (principal); N60.02 Solitary cyst of left breast

== ENCOUNTER 2023-03-17 08:15 | Outpatient (CLI) | payer MEDICAID ==
--- NOTE | 2023-03-18 13:26 | Mammography Report ---
BILATERAL DIGITAL SCREENING MAMMOGRAM 3D/2D: 03/17/2023 CLINICAL: Routine screening. Comparison is made to exams dated: 03/16/2022 ultrasound, 03/16/2022 ultrasound, 03/16/2022 mammogram, 12/03/2021 mammogram, 08/03/2017 mammogram, and 11/26/2014 ultrasound - . Both breasts are heterogeneously dense, which may obscure small masses (category c / 51-75% glandular tissue). There are cysts in both breasts that are decreased in size and less prominent. There is a new 0.7 cm oval equal density mass in the right breast at 6 o'clock posterior depth. No other significant masses, calcifications, or other findings are seen in either breast. IMPRESSION: INCOMPLETE: NEEDS ADDITIONAL IMAGING EVALUATION The new 0.7 cm oval equal density mass in the right breast resembles a cyst and is indeterminate. Ad ditional views with possible ultrasound are recommended. Based on the Tyrer Cuzick model (a risk assessment model) the patients lifetime risk is 19.3% and he r 10 year risk is 4.3%. According to the ACR, ACS, and NCCN guidelines, an annual breast MRI exam jenn ng with mammogram is recommended if the patients lifetime risk is 20% or greater. This exam was interpreted at Station ID: [id number]. NOTE: For mammograms, a report in lay terms will be sent to the patient. Approximately 15% of breast malignancies will not be visualized mammographically. In the management of a palpable breast mass, a negative mammogram must not discourage biopsy of a clinically suspicious lesion. Electronically Signed By: Gerber Reed M.D. aty/:03/17/2023 09:11:15 ACR BI-RADS Category 0: Incomplete 3340F PARENCHYMAL PATTERN: (D) - The breast(s) demonstrate(s) heterogeneously dense fibroglandular parenchy ma. BI-RADS CATEGORY: (0) - 0 Mammo and [place] [id number] Immediate follow-up LATERALITY: (R)
== END 2023-03-17 08:16 | disposition home or self-care (01) ==
LOC: DI.N 08:15
DX: Z12.31 Encounter for screening mammogram for malignant neoplasm of breast (principal); R92.8 Other abnormal and inconclusive findings on diagnostic imaging of breast

== ENCOUNTER 2023-04-06 09:38 | Outpatient (CLI) | payer MEDICAID ==
--- NOTE | 2023-04-07 16:18 | Mammography Report ---
UNILATERAL RIGHT DIGITAL DIAGNOSTIC MAMMOGRAM 3D/2D WITH SPOT COMPRESSION: 04/06/2023 CLINICAL: Patient returns today to evaluate a focal asymmetry in the right breast. Comparison is made to exams dated: 03/17/2023 mammogram, 03/16/2022 mammogram, 12/03/2021 mammogram, mammogram, 11/26/2014 mammogram, and 11/12/2014 mammogram - [facility]. The right breast is heterogeneously dense, which may obscure small masses (category c / 51-75% glandu lar tissue). There are benign cysts in the right breast that are decreased in size and less prominent. There is a 0.7 cm oval asymmetry with a circumscribed margin in the right breast at 6 o'clock posteri or depth. No other significant masses or calcifications are seen in the breast. IMPRESSION: INCOMPLETE: NEEDS ADDITIONAL IMAGING EVALUATION The 0.7 cm oval asymmetry in the right breast is consistent with a cyst and is indeterminate. An ult rasound is recommended. Based on the Tyrer Cuzick model (a risk assessment model) the patients lifetime risk is 19.5% and he r 10 year risk is 4.3%. According to the ACR, ACS, and NCCN guidelines, an annual breast MRI exam jenn ng with mammogram is recommended if the patients lifetime risk is 20% or greater. This exam was interpreted at Station ID: [id number]. NOTE: For mammograms, a report in lay terms will be sent to the patient. Approximately 15% of breast malignancies will not be visualized mammographically. In the management of a palpable breast mass, a negative mammogram must not discourage biopsy of a clinically suspicious lesion. Electronically Signed By: Jaun Diego M.D. acr/:04/06/2023 11:11:16 ACR BI-RADS Category 0: Incomplete 3340F PARENCHYMAL PATTERN: (D) - The breast(s) demonstrate(s) heterogeneously dense fibroglandular parenchy ma. BI-RADS CATEGORY: (0) - 0 Ultrasound [id number] Immediate follow-up LATERALITY: (B)
--- NOTE | 2023-04-07 16:18 | Ultrasound Report ---
LIMITED ULTRASOUND OF RIGHT BREAST: 04/06/2023 CLINICAL: Patient returns today to evaluate a focal asymmetry in the right breast. Comparison is made to exams dated: 04/06/2023 mammogram, 03/17/2023 mammogram, 03/16/2022 mammogram, 11/06 mammogram, 08/03/2017 mammogram, and 11/26/2014 mammogram - [facility]. Color flow ultrasound of the right breast 6 o'clock region was performed. Brooks scale images of the r eal-time examination were reviewed. There is a benign 0.7 cm x 0.3 cm x 0.7 cm simple cyst in the right breast at 6 o'clock posterior dep th 4 cm from the nipple. IMPRESSION: BENIGN There is no sonographic evidence of malignancy. The 0.7 cm x 0.3 cm x 0.7 cm simple cyst in the right breast is consistent with a simple cyst and is benign. A 1 year screening mammogram is recommended. This exam was interpreted at Station ID: [id number]. Electronically Signed By: Jaun Diego M.D. acr/:04/06/2023 11:10:03 Ultrasound BI-RADS: 2 Benign BI-RADS CATEGORY: (2) - 2 Mammogram [id number] 1 year screening LATERALITY: (B)
== END 2023-04-06 09:39 | disposition home or self-care (01) ==
LOC: DI 09:38
PROVIDERS: ATTEND Nurse Practitioner Family
DX: R92.8 Other abnormal and inconclusive findings on diagnostic imaging of breast (principal); N60.01 Solitary cyst of right breast

== ENCOUNTER 2023-12-19 09:10 | Outpatient (CLI) | payer OTHER ==
--- NOTE | 2023-12-19 17:31 | Ultrasound Report ---
PROCEDURE: Carotid Doppler Complete INDICATIONS: CAROTID BRUIT TECHNIQUE: Color and pulse Doppler interrogation was performed of both carotid systems, with image documentation and velocity measurements. COMPARISON: None. FINDINGS: Right side: Brachial blood pressure: 137/79 mm Hg. Common carotid artery peak systolic velocity: 99 cm/sec. Internal carotid artery peak systolic velocity: 109 cm/sec. Internal carotid artery end diastolic velocity: 58 cm/sec. External carotid artery peak systolic velocity: 93 cm/sec. ICA/CCA peak systolic ratio: 1.1 . Brooks scale imaging description: No significant atherosclerotic plaque. Percent internal carotid artery stenosis: No hemodynamically significant stenosis. Vertebral artery: Flow direction is antegrade. Left side: Brachial blood pressure: 136/83 mm Hg. Common carotid artery peak systolic velocity: 96 cm/sec. Internal carotid artery peak systolic velocity: 128 cm/sec. Internal carotid artery end diastolic velocity: 51 cm/sec. External carotid artery peak systolic velocity: 88 cm/sec. ICA/CCA peak systolic ratio: 1.3 . Brooks scale imaging description: No significant atherosclerotic plaque. Percent internal carotid artery stenosis: No hemodynamically significant stenosis. Vertebral artery: Flow direction is antegrade. IMPRESSION: 1. In the right internal carotid artery, there is no hemodynamically significant stenosis based on pe ak systolic velocity criteria. 2. In the left internal carotid artery, there is no hemodynamically significant stenosis. based on pe ak systolic velocity criteria. 3. Antegrade blood flow within the right vertebral artery. 4. Antegrade blood flow within the left vertebral artery. The estimate of stenosis included in the report of the imaging study was calculated using the [facility]-end orsed standards of carotid artery stenosis. Reviewed by: Glendy rBanham MD on 12/19/2023 5:30 PM PDT Approved by: Glendy Branham MD on 12/19/2023 5:30 PM PDT Station ID: [id number]
== END 2023-12-19 09:11 | disposition home or self-care (01) ==
LOC: DI 09:10
PROVIDERS: ATTEND Nurse Practitioner Family
DX: R09.89 Other specified symptoms and signs involving the circulatory and respiratory systems (principal)
CPT/HCPCS: 93880